=== PATIENT | female | born 1935 ===

== ENCOUNTER 2017-05-04 14:57 | Emergency (ER) | payer OTHER ==
[2017-05-04 15:09] VITALS: BP 139/68; PULSE 91; RESP 16; TEMP 98.4; O2SAT 100
[2017-05-04] MEDS ORDERED: Sodium Chloride 0.9% 1,000 ML IV STA (15:23)
--- NOTE | 2017-05-04 15:37 | ED PDOC ---
HPI: Abdomen Time Seen by Provider: 05/04/17 15:12 Chief Complaint (Nursing): Abdominal Pain Chief Complaint (Provider): Abdominal Pain History Per: Patient History/Exam Limitations: no limitations Onset/Duration Of Symptoms: Days (7 days) Outside of [place] travel?: No Current Symptoms Are (Timing): Still Present Location Of Pain/Discomfort: RLQ Quality Of Discomfort: "Pain" Associated Symptoms: Chills, Nausea. denies: Fever, Vomiting, Diarrhea Exacerbating Factors: Upright Position Additional Complaint(s): Marifer Harris, a 81 year old female, who suffers from chronic constipation and has a PMHx of Osteoporosis presents to the ED complaining of abdominal pain, that started a week ago. The patient states that between yesterday and today her pain has acutely worsened. She states that she initially feels pain in her right lower quadrant and right groin but when the pain gets "bad" it radiates to her right leg.The patient reports that the pain becomes worse if she is in an upright position but isn't as bad when she is lying down. The patient also states that there is a small "ball" in her right groin that has been there for many years, but the area around it has gotten more painful. Patient denies associated vomiting and fever but has experienced nausea and chills. Denies diarrhea, urinary symptoms. No regular PMD. Abnormal Vaginal Bleeding: No Past Medical History Reviewed: Historical Data, Nursing Documentation, Vital Signs Vital Signs: Last Vital Signs Temp 98.4 F 05/04/17 15:08 Pulse 91 H 05/04/17 15:08 Resp 16 05/04/17 15:08 BP 139/68 05/04/17 15:08 Pulse Ox 100 05/04/17 16:08 - Medical History PMH: Anemia (and thrombocytopenia), Arthritis, Osteoporosis Other PMH: Chronic constipation, Hypotension - Surgical History Other surgeries: Tongue surgery - Family History Family History: States: No Known Family Hx - Social History Current smoker - smoking cessation education provided: No Ex-Smoker (has not smoked in the last 12 months): No Alcohol: None Drugs: Denies - Home Medications Home Medications: Ambulatory Orders Medication Instructions Recorded Naproxen [Naprosyn] 1 tab PO BID PRN #30 tab 05/04/17 Ondansetron ODT [Zofran ODT] 1 odt PO Q6 PRN #20 odt 05/04/17 Polyethylene Glycol 3350 [Miralax] 17 gm PO DAILY PRN #1 bottle 05/04/17 - Allergies Allergies/Adverse Reactions: Allergies Allergy/AdvReac Type Severity Reaction Status Date / Time pineapple Allergy ITCHING Verified 05/04/17 15:08 shrimp Allergy ITCHING Verified 05/04/17 15:08 Review of Systems ROS Statement: Except As Marked, All Systems Reviewed And Found Negative Constitutional: Positive for: Chills. Negative for: Fever Gastrointestinal: Positive for: Nausea, Abdominal Pain. Negative for: Vomiting , Diarrhea Genitourinary Female: Negative for: Dysuria, Frequency, Incontinence, Hematuria Physical Exam - Reviewed Nursing Documentation Reviewed: Yes Vital Signs Reviewed: Yes - Physical Exam Appears: Positive for: Non-toxic, Uncomfortable, In Acute Distress (Patient in mild painful distress) Head Exam: Positive for: ATRAUMATIC, NORMOCEPHALIC Skin: Positive for: Normal Color, Warm, Dry Eye Exam: Positive for: Normal appearance, EOMI, PERRL. Negative for: Scleral icterus ENT: Positive for: Normal ENT Inspection, Pharynx Is (Pharynx is clear.), Other (Mucous membranes are moist) Neck: Positive for: Normal, Painless ROM, Supple Cardiovascular/Chest: Positive for: Regular Rate, Rhythm, Chest Non Tender. Negative for: Murmur, Tachycardia Respiratory: Positive for: Normal Breath Sounds (Lungs sounds clear bilaterally) . Negative for: Accessory Muscle Use, Wheezing, Respiratory Distress Gastrointestinal/Abdominal: Positive for: Bowel Sounds, Soft, Tenderness (Right lower quadrant tenderness, McBurney's Point Tenderness, Negative for Adan's point tenderness.), Hernia (Reducible right inguinal hernia that is mildly tender.). Negative for: Mass, Guarding, Rebound Back: Positive for: Normal Inspection Extremity: Positive for: Normal ROM. Negative for: Tenderness, Pedal Edema, Deformity, Swelling Lymphatic: Positive for: Normal Exam. Negative for: Adenopathy Neurologic/Psych: Positive for: Alert, Oriented, Gait. Negative for: Motor/ Sensory Deficits - Laboratory Results Result Diagrams: 05/04/17 17:12 05/04/17 15:59 - ECG O2 Sat by Pulse Oximetry: 100 (RA) Pulse Ox Interpretation: Normal Medical Decision Making Medical Decision Makin:12 Initial Impression: 81 year old female presenting Right lower quadrant pain Differentials: Appendicitis, Inguinal Hernia Strangulation, Mesenteric Adenitis , Colitis Initial Plan: * CT ABD& PELVIS IV Contrast * CMP * Lactic Acid plasma * Udip * CBC * Partial thomboplastin time * Prothrombin time * NS 1000ml IV 1000ml/hr * Toradol 15mg IV * Zofran inj 4mg IVP Accession No. : [id number] Patient Name / ID : JASVIR MARTINES / [id number] Exam Date : 05/04/2017 17:00:54 ( Approved ) Study Comment : Sex / Age : F / 81Y Creator : Bradley Andujar MD Dictator : Bradley Andujar MD Plywood Scarfer Tender : Warehouse General Laborer : Bradley Andujar MD Approver2 : Report Date : 05/04/2017 17:53:28 My Comment : PROCEDURE: CT Abdomen and Pelvis with contrast HISTORY: RLQ pain COMPARISON: None. TECHNIQUE: Contrast dose: 80 cc Omnipaque 300 Radiation dose: Total exam DLP = 211.90 mGy-cm. This CT exam was performed using one or more of the following dose reduction techniques: Automated exposure control, adjustment of the mA and/or kV according to patient size, and/or use of iterative reconstruction technique. FINDINGS: LOWER THORAX: Unremarkable. LIVER: Unremarkable. No gross lesion or ductal dilatation. GALLBLADDER AND BILE DUCTS: Unremarkable. PANCREAS: Unremarkable. No gross lesion or ductal dilatation. SPLEEN: Unremarkable. ADRENALS: Unremarkable. No mass. KIDNEYS AND URETERS: Unremarkable. No hydronephrosis. No solid mass. VASCULATURE: Unremarkable. No aortic aneurysm. BOWEL: Unremarkable. No obstruction. No gross mural thickening. Constipation without fecal impaction or obstruction. APPENDIX: A normal appendix is not seen. There is no evidence of right lower quadrant or pelvic inflammatory process. There is no history of elevated white count per my discussions with the attending physician in the emergency department. PERITONEUM: Unremarkable. No free fluid. No free air. LYMPH NODES: Unremarkable. No enlarged lymph nodes. BLADDER: Unremarkable. REPRODUCTIVE: Unremarkable. BONES: No acute fracture. OTHER FINDINGS: None. IMPRESSION: No acute findings related to/accounting for the clinical presentation. On reeval pt stable. Pt has had pancytopenia in the past. DW pt and daughter findings and plan of care. Surgery follow up. Meds for pain. Rest. Constipation instructions. Scribe Attestation Documented by Dinah Burris acting as a scribe for Jennifer Steinberg MD. Provider Attestation All medical record entries made by the Scribe were at my direction and personally dictated by me. I have reviewed the chart and agree that the record accurately reflects my personal performance of the history, physical exam, medical decision making, and the department course for this patient. I have also personally directed, reviewed, and agree with the discharge instructions and disposition. Disposition - Clinical Impression Clinical Impression: Abdominal pain, Constipation, Inguinal hernia of right side without obstruction or gangrene Counseled Patient/Family Regarding: Studies Performed, Diagnosis, Need For Followup, Rx Given - Disposition Referrals: [facility] [Outside] Mihir Chatterjee MD [Staff Provider] - (VISITA A LA CIRUGANO EN 3-4 MULLINS POR MAS TRATAMIENTE A HERNIA.) Randell Goyal MD [Staff Provider] - (VISITA UN DOCTOR PRIMARIO PARA INICIAR ASISTENCIA MEDICA REGULAR) Disposition: Routine/Home Disposition Time: 18:00 Condition: STABLE Prescriptions: Naproxen [Naprosyn] 1 tab PO BID PRN #30 tab PRN Reason: Pain Ondansetron ODT [Zofran ODT] 1 odt PO Q6 PRN #20 odt PRN Reason: Nausea/Vomiting Polyethylene Glycol 3350 [Miralax] 17 gm PO DAILY PRN #1 bottle PRN Reason: Constipation Instructions: Abdominal Pain (ED), Inguinal Hernia (ED), Constipation (ED) Print Language: ALBANIAN
[2017-05-04] MEDS ORDERED: DiphenhydrAMINE 50 mg/ml Inj IVP STA (16:04)
[2017-05-04 16:24] LABS: ALB/GLOB RATIO 0.7 (1.0-2.1); ALKALINE PHOSPHATASE 76 U/L (38-126); ALT/SGPT 22 U/L (9-52); AST/SGOT 55 U/L (14-36); BILIRUBIN,TOTAL 0.5 mg/dl (0.2-1.3); BLOOD UREA NITROGEN 13 mg/dl (7-17); CALCIUM 9.1 mg/dL (8.4-10.2); CARBON DIOXIDE 21 mmol/L (22-30); CHLORIDE 100 mmol/L (98-107); GFR AFRICAN-AMERICAN > 60; GLUCOSE,RANDOM 95 mg/dL (65-105); SODIUM 130 mmol/l (132-148); TOTAL PROTEIN 9.6 G/DL (6.3-8.2)
[2017-05-04 16:30] LABS: POTASSIUM 4.5 MMOL/L (3.6-5.0)
[2017-05-04] MEDS ORDERED: DiphenhydrAMINE 50 mg/ml Inj ONE (16:32)
[2017-05-04] MEDS ORDERED: Sodium Chloride 0.9% 50 ML IV ONE (16:44)
[2017-05-04] MEDS ORDERED: Iohexol 300 100 ML IJ ONE (16:44)
[2017-05-04 17:12] LABS: BASO % 0.1 % (0.0-2.0); EOS # 0.1 K/uL (0.0-0.7); HEMATOCRIT 30.8 % (34.0-47.0); LYMPH # 0.6 K/uL (1.0-4.3); LYMPH % 20.2 % (20.0-40.0); MEAN CELL VOLUME 87.6 fl (81.0-99.0); MEAN CORPUSCULAR HEMOGLOBIN 28.9 pg (27.0-31.0); MEAN PLATELET VOLUME 6.8 fl (7.2-11.7); MONO # 0.3 K/uL (0.0-0.8); MONO % 11.5 % (0.0-10.0); NEUT # 1.9 K/uL (1.8-7.0); NEUT % 66.2 % (50.0-75.0); NRBC % 0.2 % (0.0-0.0); RED CELL DISTRIBUTION WIDTH 14.9 % (11.5-14.5); WHITE BLOOD COUNT 2.9 K/uL (4.8-10.8)
[2017-05-04 17:26] LABS: PARTIAL THROMBOPLASTIN TIME 28.3 Seconds (25.6-37.1)
--- NOTE | 2017-05-04 17:54 | CT ---
PROCEDURE: CT Abdomen and Pelvis with contrast HISTORY: RLQ pain COMPARISON: None. TECHNIQUE: Contrast dose: 80 cc Omnipaque 300 Radiation dose: Total exam DLP = 211.90 mGy-cm. This CT exam was performed using one or more of the following dose reduction techniques: Automated exposure control, adjustment of the mA and/or kV according to patient size, and/or use of iterative reconstruction technique. FINDINGS: LOWER THORAX: Unremarkable. LIVER: Unremarkable. No gross lesion or ductal dilatation. GALLBLADDER AND BILE DUCTS: Unremarkable. PANCREAS: Unremarkable. No gross lesion or ductal dilatation. SPLEEN: Unremarkable. ADRENALS: Unremarkable. No mass. KIDNEYS AND URETERS: Unremarkable. No hydronephrosis. No solid mass. VASCULATURE: Unremarkable. No aortic aneurysm. BOWEL: Unremarkable. No obstruction. No gross mural thickening. Constipation without fecal impaction or obstruction. APPENDIX: A normal appendix is not seen. There is no evidence of right lower quadrant or pelvic inflammatory process. There is no history of elevated white count per my discussions with the attending physician in the emergency department. PERITONEUM: Unremarkable. No free fluid. No free air. LYMPH NODES: Unremarkable. No enlarged lymph nodes. BLADDER: Unremarkable. REPRODUCTIVE: Unremarkable. BONES: No acute fracture. OTHER FINDINGS: None. IMPRESSION: No acute findings related to/accounting for the clinical presentation.
== END 2017-05-04 18:33 | disposition home or self-care (01) ==
LOC: H.ER 14:57
DX: K40.90 Unilateral inguinal hernia, without obstruction or gangrene, not specified as recurrent (principal); K59.00 Constipation, unspecified; R10.31 Right lower quadrant pain; R11.0 Nausea

== ENCOUNTER 2017-07-29 07:09 | Day surgery (SDC) | payer SELFPAY ==
[2017-07-29] MEDS ORDERED: Lactated Ringer's 500 ML IV ONE (07:43)
[2017-07-29 08:16] VITALS: TEMP 97
[2017-07-29] MEDS ORDERED: Midazolam 2 MG/2 ML VIAL ONE (08:28)
[2017-07-29] MEDS ORDERED: Propofol 10 mg/ml Inj (20 ML) ONE (08:28)
[2017-07-29] MEDS ORDERED: Etomidate 20 mg/10ml Inj IV ONE (08:29)
[2017-07-29 09:27] VITALS: O2SAT 99
[2017-07-29 09:40] VITALS: BP 115/65; PULSE 94; RESP 20
== END 2017-07-29 10:45 | disposition home or self-care (01) ==
LOC: H.ENDO 07:09
PROVIDERS: ATTEND Internal Medicine Gastroenterology
DX: D50.9 Iron deficiency anemia, unspecified (principal); K64.1 Second degree hemorrhoids; K29.70 Gastritis, unspecified, without bleeding
CPT/HCPCS: 43239; 45378; 88305; J2001; J2250; J2704; J7120